=== PATIENT | male | born 1965 | race Caucasian/White ===

== ENCOUNTER 2020-02-15 17:10 | Inpatient (IN) | payer OTHER ==
[~2020-02-15] VITALS: Ht 175.3 cm; Wt 94.3 kg
[2020-02-15 17:15] VITALS: BP 152/84
[2020-02-15] MEDS ORDERED: IBUPROFEN 800800 M1 PO ×2 (17:19→21:07)
[2020-02-15] MEDS ORDERED: CLONIDINE HCL0.2 M2 PO ×2 (17:19→21:06)
[2020-02-15] MEDS ORDERED: LISINOPRIL20 MG PO (17:20)
[2020-02-15] MEDS ORDERED: KEFLEX500 M1 PO ×2 (17:20→21:08)
[2020-02-15 17:37] LABS: ABSOLUTE EOSINOPHILS 0.2 thou/uL (0.0-0.7); ABSOLUTE LYMPHOCYTES 2.8 thou/uL (0.8-5.3); ABSOLUTE MONOCYTES 0.8 thou/uL (0.0-1.2); ABSOLUTE NEUTROPHILS 5.9 thou/uL (1.6-8.1); BASOPHILS 0.3 %; EOSINOPHILS 2.2 %; HEMATOCRIT 50.6 % (42.0-52.0); HEMOGLOBIN 17.6 gm/dL (14.0-18.0); LYMPHOCYTES 28.3 %; MCHC 34.7 g/dL (28.0-37.0); MCV 92.3 fL (80.0-100.0); MONOCYTES 8.7 %; MPV 8.3 fl. (7.2-11.1); NUCLEATED RBCS 0 /100WBC; PLATELET COUNT* 430 thou/uL (150-400); POLYS 60.5 %; RBC 5.48 mil/uL (4.50-6.00); RDW-CV 15.1 % (10.5-14.5); WBC 9.7 thou/uL (4.0-11.0)
[2020-02-15 17:44] LABS: APTT 30.8 Seconds (25.0-31.3); INR 1.1; PROTIME 11.4 Seconds (9.20-11.50)
[2020-02-15 17:45] LABS: CALCIUM 9.7 mg/dL (8.5-10.1); CREATININE 1.3 mg/dL (0.6-1.3); POTASSIUM 4.4 mmol/L (3.5-5.1)
[2020-02-15 17:55] LABS: ALBUMIN 3.6 g/dL (3.4-5.0); MAGNESIUM 2.1 mg/dL (1.8-2.4); TOTAL BILIRUBIN 0.7 mg/dL (<0.1-1.0); TOTAL PROTEIN 8.3 g/dL (6.4-8.2)
[2020-02-15 20:04] VITALS: BP 130/95
[2020-02-15 20:15] VITALS: BP 169/83
[2020-02-15] MEDS ORDERED: ALPRAZOLAM PO (21:05)
[2020-02-15] MEDS ORDERED: PRINIVIL40 MG PO (21:09)
[2020-02-15] MEDS ORDERED: TYLENOL PM EX-1 EACH PO (21:10)
[2020-02-16] VITALS (19 sets, daily range): BP systolic 124–175; BP diastolic 68–104
[2020-02-16 09:44] LABS: CHOLESTEROL 242 mg/dL (<200); HDL CHOLESTEROL 39 mg/dL (>40); LDL CHOLESTEROL 176 mg/dL (<100); SERUM ASSESSMENT Clear; TC:HDL 6.2 Ratio (Not establshd); TRIGLYCERIDE 138 mg/dL (<150); VLDL 28 mg/dL (<40)
--- NOTE | 2020-02-16 12:38 | EKG ---
[place] [address] ELECTROCARDIOGRAM REPORT Name: BIMAL BRAXTON Room: [address] ADM IN M.R.#: [id number] Admission: 02/15/20 Attend Phys: Dago Jacinto Discharge: Date of : 69 Date of Service: 02/15/20 1715 Report #: [id number] THIS REPORT FOR: //name// [facility] ED Test Date: 2020-02-15 Test Time: 17:15:03 Pat Name: BIMAL BRAXTON Department: Room: [facility] Gender: M Stacker: PRANAV : 1965 Requested By: Herbert Will Order Number: [id number] MD: René Kumar Measurements Intervals [place] Rate: 88 P: 55 NM: 151 QRS: -66 QRSD: 87 T: 43 QT: 375 QTc: 454 Interpretive Statements Sinus rhythm Ventricular premature complex Probable left atrial enlargement Inferior infarct, old possible Anterior infarct, old No previous ECG available for comparison Electronically Signed On 02-16-2020 12:38:40 CDT by René Kumar [email or web address] <ELECTRONICALLY SIGNED> By: René Kumar MD, [facility] 02/16/20 1238 1715 1715 René Kumar MD, [facility] /EPI
--- NOTE | 2020-02-16 15:06 | EKG ---
[place] [address] ELECTROCARDIOGRAM REPORT Name: BIMAL BRAXTON Room: [address] ADM IN M.R.#: [id number] Admission: 02/15/20 Attend Phys: Dago Jacinto Discharge: Date of : 69 Date of Service: 02/16/20 1322 Report #: [id number] THIS REPORT FOR: //name// [facility] Test Date: 2020-02-16 Test Time: 13:22:40 Pat Name: BIMAL BRAXTON Department: Room: [address] Gender: M Airport Ramp Attendant: : 1965 Requested By: Yamil Key Order Number: [id number] MD: René Kumar Measurements Intervals [place] Rate: 62 P: 36 RI: 163 QRS: -44 QRSD: 119 T: -58 QT: 500 QTc: 508 Interpretive Statements Sinus rhythm Left anterior fascicular block Probable anterior infarct, age indeterminate Compared to ECG 02/15/2020 17:15:03 Left anterior fascicular block persists Ventricular premature complex(es) no longer present Myocardial infarct finding still present Electronically Signed On 02-16-2020 15:06:42 CDT by René Kumar [email or web address] <ELECTRONICALLY SIGNED> By: René Kumar MD, [facility] 02/16/20 1506 1322 1322 René Kumar MD, [facility] /EPI
--- NOTE | 2020-02-16 17:36 | 2DMMODE ---
[place] [address] 2 D/M-MODE ECHOCARDIOGRAM Name: IRAISBIMAL Jayden Room: [address] IN [facility]#: [id number] Admission: 02/15/20 Attend Phys: Dago Jacinto Discharge: Date of : 69 Date of Service: 02/16/20 1736 Report #: [id number] THIS REPORT FOR: cc: FAM - No family physician/PCP FAM - No family physician/PCP Yamil Key MD [facility] ~ APPROVED REPORT Study performed: 02/16/2020 13:44:11 EXAM: Comprehensive 2D, Doppler, and color-flow Echocardiogram Patient Location: In-Patient Room #: 222 Status: routine BSA: 2.10 HR: 59 bpm BP: 175/89 mmHg Rhythm: NSR Other Information Study Quality: Good Indications Non STEMI Chest Pain 2D Dimensions IVSd: 12.75 (7-11mm) LVOT Diam: 20.37 (18-24mm) LVDd: 44.57 mm PWd: 11.70 (7-11mm) Ascending Ao: 37.29 (22-36mm) LVDs: 27.14 (25-40mm) Aortic Root: 34.94 mm Volumes Left Atrial Volume (Systole) LA ESV Index: 26.10 mL/m2 Aortic Valve AoV Peak Juanito.: 1.36 m/s AO Peak Gr.: 7.36 mmHg LVOT Max P.71 mmHg AO Mean Gr.: 3.48 mmHg LVOT Mean P.32 mmHg LVOT Max V: 1.09 m/s AO V2 VTI: 25.48 cm LVOT Mean V: 0.70 m/s HEIDE (VTI): 2.34 cm2 LVOT V1 VTI: 18.26 [place] [address] 2 D/M-MODE ECHOCARDIOGRAM Name: BIMAL BRAXTON Room: [address] IN [facility].#: [id number] Admission: 02/15/20 Attend Phys: Dago Jacinto Discharge: Date of : 69 Date of Service: 02/16/20 1736 Report #: [id number] Mitral Valve E/A Ratio: 1.02 MV Decel. Time: 258.99 ms MV E Max Juanito.: 0.56 m/s MV PHT: 75.11 ms MVA (PHT): 2.93 cm2 TDI E/Lateral E': 8.00 E/Medial E': 9.33 Medial E' Juanito.: 0.06 m/s Lateral E' Juanito.: 0.07 m/s Pulmonary Valve PV Peak Juanito.: 0.99 m/s PV Peak Gr.: 3.89 mmHg Left Ventricle The left ventricle is normal size. There is normal LV segmental wall motion. Mild concentric left ventricular hypertrophy. Left ventricular systolic function is normal. LVEF is 55-60%. Transmitral Doppler flow pattern suggests impaired LV relaxation. Right Ventricle The right ventricle is normal size. The right ventricular systolic function is normal. Atria The left atrium size is normal. The right atrium size is normal. Aortic Valve The aortic valve is normal in structure. No aortic regurgitation is present. There is no aortic valvular stenosis. Mitral Valve The mitral valve is normal in structure. There is no mitral valve regurgitation noted. No evidence of mitral valve stenosis. Tricuspid Valve The tricuspid valve is normal in structure. Unable to assess PA pressure. Trace tricuspid regurgitation. Pulmonic Valve The pulmonary valve is normal in structure. There is no pulmonic [place] [address] 2 D/M-MODE ECHOCARDIOGRAM Name: BIMAL BRAXTON Room: [address] IN [facility]#: [id number] Admission: 02/15/20 Attend Phys: Dago Jacinto Discharge: Date of : 69 Date of Service: 02/16/20 1736 Report #: [id number] Great Vessels The aortic root is normal in size. IVC is normal in size and collapses >50% with inspiration. Pericardium There is no pericardial effusion. <Conclusion> The left ventricle is normal size. Mild concentric left ventricular hypertrophy. Left ventricular systolic function is normal. LVEF is 55-60%. Transmitral Doppler flow pattern suggests impaired LV relaxation. There is normal LV segmental wall motion. Trace tricuspid regurgitation. IVC is normal in size and collapses >50% with inspiration. <ELECTRONICALLY SIGNED> By: Yamil Key MD, FACC 02/16/20 1736 1736 1736 Yamil Key MD, FACC /INF
[2020-02-17 00:51] VITALS: BP 133/88
[2020-02-17 04:40] VITALS: BP 170/99
[2020-02-17 05:11] LABS: ABSOLUTE BASOPHILS 0.1 thou/uL (0.0-0.2); ABSOLUTE EOSINOPHILS 0.1 thou/uL (0.0-0.7); ABSOLUTE LYMPHOCYTES 2.5 thou/uL (0.8-5.3); ABSOLUTE MONOCYTES 0.7 thou/uL (0.0-1.2); ABSOLUTE NEUTROPHILS 5.1 thou/uL (1.6-8.1); BASOPHILS 1.3 %; EOSINOPHILS 1.7 %; HEMATOCRIT 47.8 % (42.0-52.0); HEMOGLOBIN 16.1 gm/dL (14.0-18.0); MCH 31.3 pg (26.0-34.0); MCHC 33.7 g/dL (28.0-37.0); MCV 92.9 fL (80.0-100.0); MONOCYTES 7.9 %; NUCLEATED RBCS 0 /100WBC; PLATELET COUNT* 445 thou/uL (150-400); POLYS 60.1 %; RBC 5.15 mil/uL (4.50-6.00); RDW-CV 15.1 % (10.5-14.5); WBC 8.6 thou/uL (4.0-11.0)
[2020-02-17 05:43] LABS: CALCIUM 8.6 mg/dL (8.5-10.1); CREATININE 1.4 mg/dL (0.6-1.3); POTASSIUM 3.9 mmol/L (3.5-5.1)
[2020-02-17 08:00] VITALS: BP 166/108
[2020-02-17] MEDS ORDERED: COREG6.25 MG PO (08:47)
[2020-02-17] MEDS ORDERED: EFFIENT10 MG PO (08:47)
[2020-02-17] MEDS ORDERED: ASPIR 8181 MG PO (08:47)
[2020-02-17] MEDS ORDERED: ALPRAZOLAM XR3 MG PO (09:06)
[2020-02-17] MEDS ORDERED: LIVALO2 MG PO (09:09)
--- NOTE | 2020-02-17 09:27 | CARD ---
[address] [address] CARDIAC CATH REPORT Name: IRAISBIMAL Jayden Room: [address] IN [facility]#: [id number] Admission: 02/15/20 Attend Phys: Radha Clay Discharge: Date of : 69 Report #: [id number] THIS REPORT FOR: //name// cc: EMMANUEL - No family physician/PCP FAM - No family physician/PCP ~ APPROVED REPORT Study performed: 02/16/2020 10:04:42 Patient Details Patient Status: In-Patient Room #: The patient is a 54 year-old male Event Personnel Yamil Key Field Control Inspector, Gm Avina RN RN, Marily Whatley, Ya Smith RTR Scrub, René Kumar Assistant Plant Manager Procedures Performed Art Access - R femoral artery, Left Heart Cath w/LV ,LHCLV, BROWN Place w/wo Plasty Single LAD Admission/Lab Medications/Medications given during procedure Hydralazine (Apresoline) IV 10 mg, Angiomax IV 14 ml, Angiomax Drip IV 33 ml per hr, Effient PO 60 mg Procedure Narrative The patient was brought urgently to the Cardiac Catheterization Laboratory and was prepped and draped in a sterile manner. The right femoral was infiltrated with 2% Lidocaine subcutaneous anesthesia. A [place] 6 FR sheath was inserted into the right femoral artery. Coronary angiography was performed using coronary diagnostic catheters. The right coronary system was accessed and visualized with a 6F JR4 catheter. The left coronary system was accessed and visualized with a 6F JL5 catheter. The left ventricle was accessed and visualized with a 6F Pigtail catheter. Left ventricular/Aortic Valve gradient assessed via simultaneous left ventricle and right femoral artery pressure. Left ventriculogram was performed in CLARK projection. Pre-demployment femoral angiogram was performed . Closure device was deployed with a 6 Fr Angioseal STS. The patient tolerated the procedure well and there were no complications associated with the procedure. There was no hematoma. Intra[place] [address] CARDIAC CATH REPORT Name: IRAISBIMAL M Room: [address] IN [facility]#: [id number] Admission: 02/15/20 Attend Phys: Radha Clay Discharge: Date of : 69 Report #: [id number] Sedation start time: 1058 Case end Time: 1142 Fentanyl 50 mcg Versed 2 mg Fluoro Time: 7.3 minutes Dose: DAP 130632 cGycm2 1652.89 mGy Contrast Type and Amount: Visipaque 200 ml Diagnostic Cath Left Main The left main coronary artery is normal and bifurcates into a left anterior descending and circumflex coronary artery. LAD The left anterior descending coronary artery is normal proximally. There is an 80% narrowing in the midportion after the takeoff of a diagonal branch. Diagonal 1 The first diagonal branch is large and normal. Diagonal 2 A moderate sized branch second diagonal branch is normal. Circumflex The circumflex coronary artery is normal in its proximal mid and distal portion. OM1 A large branch first obtuse marginal branch is normal. OM2 A very small second obtuse branch marginal is normal. Right Coronary A large dominant right coronary artery is normal in its proximal mid and distal portion. R PDA A large PDA is normal. RPLV A moderate size posterior lateral branch is normal. Left Ventriculography The left ventricle is normal in size with normal contractility. The left ventricular ejection fraction is estimated to be 60%. Hemodynamics The aortic pressure is 147/100 mmHg with a mean of 115 mmHg. The left ventricular pressure is 141/5 mmHg with a mean of mmHg. The left ventricular end diastolic pressure is 10 mmHg. Pullback from the left ventricle to the aorta revealed no gradient across the aortic valve. PCI Technique Lesion Anticoagulation was achieved with Angiomax. Patient was preloaded with Angiomax IV 14 ml. Percutaneous coronary intervention was performed on the mid left anterior descending artery segment. The lesion stenosis prior to intervention was 80% with SADE 3 flow. A 6FR XB 3.5 100CM Guide Catheter was used to engage the lm ostium. A BMW 190cm Interventional Guidewire was used [place] [address] CARDIAC CATH REPORT Name: BIMAL BRAXTON Room: [address] IN ..#: [id number] Admission: 02/15/20 Attend Phys: Radha Clay Discharge: Date of : 69 Report #: [id number] BALLOON DILATION A Balloon catheter Euphora SC 2.0x10mm was inserted and inflated up to 10.00atm for 9seconds. Additional Inflation: 12.00atm for 12seconds. Additional Inflation: 14.00atm for 5seconds. STENT DEPLOYMENT A drug-eluting stent [place] 2.0 x 15 was inserted and inflated up to 8.00atm for 8seconds. Additional Inflation: 12.00atm for 8seconds. Additional Inflation: 14.00atm for 8seconds. Final angiography reveals 0 % stenosis with SADE 3 flow. Conclusion 1. 80% narrowing in the mid left anterior descending coronary artery. 2. Normal left ventricular end-diastolic pressure. 3. Normal left ventricular systolic function. 4. Successful PCI with deployment of a drug-eluting stent at site of 80% mid LAD stenosis with 0% residual narrowing SADE-3 flow to the distal vessel and no residual thrombus Recommendations Cardiac Risk Reduction Program Aggressive Medical Therapy 1. Percutaneous coronary intervention to the mid left anterior descending coronary artery. 2. Continue aggressive risk factor modification. Medications Administered Aspirin (any) Prasugrel Cardiac Rehabilitation Referral Diagnostic Cath Approved by: Yamil Key MD Date/Time: 02/17/2020 09:26:50 <ELECTRONICALLY SIGNED> By: René Kumar MD, FACC 02/17/20926 6 6René Kumar MD, FACC /INF
--- NOTE | 2020-02-17 09:34 | EKG ---
[place] [address] ELECTROCARDIOGRAM REPORT Name: BIMAL BRAXTON Room: [address] ADM IN M.R.#: [id number] Admission: 02/15/20 Attend Phys: Dago Jacinto Discharge: Date of : 69 Date of Service: 02/17/20 0456 Report #: [id number] THIS REPORT FOR: //name// [facility] Test Date: 2020-02-17 Test Time: 04:56:18 Pat Name: BIMAL BRAXTON Department: Room: [address] Gender: M Video Editor: SUSHANT : 1965 Requested By: Yamil Key Order Number: [id number] Arnav MD: René Kumar Measurements Intervals [place] Rate: 61 P: 23 CT: 163 QRS: -48 QRSD: 107 T: -52 QT: 475 QTc: 479 Interpretive Statements Sinus rhythm Inferior infarct, old possible Probable anterior infarct, age indeterminate Compared to ECG 02/16/2020 13:22:40 Myocardial infarct finding still present Electronically Signed On 02-17-2020 9:34:45 CDT by René Kumar [email or web address] <ELECTRONICALLY SIGNED> By: René Kumar MD, [facility] 02/17/20 0934 0456 0456 René Kumar MD, [facility] /EPI
[2020-02-17 09:59] VITALS: BP 175/89
[2020-02-17 10:09] VITALS: BP 175/89
--- NOTE | 2020-02-21 12:58 | CON ---
[address] [address] CONSULTATION Name: BIMAL BRAXTON Room: [address] IN M.R.#: [id number] Admission: 02/15/20 Attend Phys: Radha Clay Discharge: 02/17/20 Date of : 69 Report #: [id number] THIS REPORT FOR: //name// cc: EMMANUEL Contreras No family physician/PCP EMMANUEL - No family physician/PCP ~ THIS REPORT FOR: //name// CC: Haritha Welch MD [facility] physician/PCP Dago Jacinto DATE OF SERVICE: 02/16/2020 CARDIOLOGY CONSULTATION INDICATION: Myocardial infarction. HISTORY OF PRESENT ILLNESS: The patient has no prior cardiac history. He has been having dyspnea on exertion for the past 3 weeks. Three weeks ago, he had superficial thrombosis of a vein on his lower extremity. He had some swelling associated with that. Apparently, ultrasound of the lower extremities showed no evidence of DVT. Yesterday, the patient began to have pain in the middle of his chest, which he thought was indigestion. He had some typical symptoms such as radiation to the left triceps and teeth. The pain waxed and waned yesterday. A chest x-ray was unremarkable. Interestingly, he reports a CardioScan score of 0 three months ago. CARDIAC RISK FACTORS: Include hypertension, dyslipidemia, chewing tobacco use and family history of coronary artery disease. PAST MEDICAL HISTORY: 1. Hypertension. 2. Dyslipidemia. 3. Chewing tobacco use. FAMILY HISTORY: The patient's father has coronary artery disease. SOCIAL HISTORY: The patient does not smoke. He does not drink alcohol. ALLERGIES: None documented. HOME MEDICATIONS: Lisinopril 40 mg daily. REVIEW OF SYSTEMS: Positive for dyspnea on exertion. Negative for shortness of breath at rest. Negative for orthopnea or paroxysmal nocturnal dyspnea. Positive for chest pain as outlined above. Otherwise, [place] [address] CONSULTATION Name: BIMAL BRAXTON Room: [address]#: [id number] Admission: 02/15/20 Attend Phys: Radha Clay Discharge: 02/17/20 Date of : 69 Report #: [id number] systems is unremarkable. PHYSICAL EXAMINATION: VITAL SIGNS: Stable. Blood pressure 153/81, pulse is 77 and regular. GENERAL: This is a pleasant gentleman in no distress. Mood and affect appropriate. HEENT: Extraocular muscles are intact. Mucous membranes are moist. NECK: Shows no jugular venous distention. There are no carotid bruits. CHEST: Reveals clear lung lizarraga without wheezes or rales. CARDIOVASCULAR: Reveals a regular rhythm without gallop or murmur. ABDOMEN: Reveals normal bowel sounds. The abdomen is soft and nontender. EXTREMITIES: Shows no edema presently. There is a thrombosed superficial vein in the left lower extremity. SKIN: Dry. LABORATORY DATA: Reviewed. Presently, troponin 2.63. Labs are otherwise unremarkable. Chest x-ray shows no acute cardiopulmonary process. IMPRESSION AND RECOMMENDATIONS: 1. Myocardial infarction. Chronicity is not well defined. We will plan for angiography and possible intervention today. 2. Probable cunlu-ke-ihslhvj systolic heart failure. The patient is presently euvolemic. We will initiate medications including beta ximena and angiotensin receptor ximena. Echocardiogram ordered and pending. 3. Hypertension. We will adjust medications for improved control. 4. Dyslipidemia. Fasting lipid profile pending. <ELECTRONICALLY SIGNED> By: Yamil Key MD, FACC 02/21/20 1258 0941 0959Michael Nan Key MD, FACC /nt
== END 2020-02-17 12:25 | disposition home or self-care (01) | DRG 246 ==
LOC: M.ERS 17:10 → M.2W 18:14 → M.TBA-ER 18:14 → M.2W 20:10
PROVIDERS: Emergency Medicine Emergency Medical Services; Internal Medicine; Internal Medicine Cardiovascular Disease; ADMIT Internal Medicine; ATTEND Internal Medicine
PROC: 4A023N7 Measurement of Cardiac Sampling and Pressure, Left Heart, Percutaneous Approach (ICD-10-PCS; principal; 2020-02-16)
PROC: B211YZZ Fluoroscopy of Multiple Coronary Arteries using Other Contrast (ICD-10-PCS; principal; 2020-02-16)
PROC: B215YZZ Fluoroscopy of Left Heart using Other Contrast (ICD-10-PCS; principal; 2020-02-16)
PROC: 027034Z Dilation of Coronary Artery, One Artery with Drug-eluting Intraluminal Device, Percutaneous Approach (ICD-10-PCS; principal; 2020-02-16)
DX: I21.4 Non-ST elevation (NSTEMI) myocardial infarction (principal); I50.43 Acute on chronic combined systolic (congestive) and diastolic (congestive) heart failure; I11.0 Hypertensive heart disease with heart failure; E78.5 Hyperlipidemia, unspecified; F17.210 Nicotine dependence, cigarettes, uncomplicated; Z20.828 Contact with and (suspected) exposure to other viral communicable diseases; Z90.81 Acquired absence of spleen; Z79.899 Other long term (current) drug therapy; Z72.89 Other problems related to lifestyle

== ENCOUNTER 2020-07-19 18:25 | Emergency (ER) | payer OTHER ==
[~2020-07-19] VITALS: Ht 175.3 cm; Wt 98.4 kg
[~2020-07-19 18:25] MED LIST: ALPRAZOLAM PO; ALPRAZOLAM XR3 MG PO; ASPIR 8181 MG PO; CLONIDINE HCL0.2 M2 PO; COREG6.25 MG PO; EFFIENT10 MG PO; IBUPROFEN 800800 M1 PO; KEFLEX500 M1 PO; LISINOPRIL20 MG PO; LIVALO2 MG PO; PRINIVIL40 MG PO; TYLENOL PM EX-1 EACH PO
[2020-07-19 19:37] LABS: ABSOLUTE BASOPHILS 0.1 thou/uL (0.0-0.2); ABSOLUTE EOSINOPHILS 0.5 thou/uL (0.0-0.7); ABSOLUTE LYMPHOCYTES 3.6 thou/uL (0.8-5.3); ABSOLUTE MONOCYTES 0.7 thou/uL (0.0-1.2); ABSOLUTE NEUTROPHILS 6.4 thou/uL (1.6-8.1); BASOPHILS 1.2 %; EOSINOPHILS 4.7 %; HEMATOCRIT 36.4 % (42.0-52.0); HEMOGLOBIN 12.3 gm/dL (14.0-18.0); LYMPHOCYTES 31.4 %; MCH 31.3 pg (26.0-34.0); MCHC 33.7 g/dL (28.0-37.0); MONOCYTES 6.4 %; MPV 7.5 fl. (7.2-11.1); NUCLEATED RBCS 0 /100WBC; PLATELET COUNT* 357 thou/uL (150-400); POLYS 56.3 %; RBC 3.91 mil/uL (4.50-6.00); WBC 11.4 thou/uL (4.0-11.0)
[2020-07-19 19:48] LABS: CALCIUM 8.6 mg/dL (8.5-10.1); CREATININE 1.3 mg/dL (0.6-1.3); POTASSIUM 3.7 mmol/L (3.5-5.1)
[2020-07-19 19:52] LABS: ALBUMIN 3.1 g/dL (3.4-5.0); TOTAL BILIRUBIN 0.3 mg/dL (<0.1-1.0); TOTAL PROTEIN 7.1 g/dL (6.4-8.2)
[2020-07-19 21:57] VITALS: BP 165/89
--- NOTE | 2020-07-20 08:55 | EKG ---
[place] [address] ELECTROCARDIOGRAM REPORT Name: BIMAL BRAXTON Room: [facility]#: [id number] Admission: 07/19/20 Attend Phys: Discharge: 07/19/20 Date of : 69 Date of Service: 07/19/201916 Report #: [id number] THIS REPORT FOR: //name// [facility] ED Test Date: 2020-07-19 Test Time: 19:17:03 Pat Name: BIMAL BRAXTON Department: Room: Gender: Photographer Still: [place] : 1965 Requested By: Federica Louis Order Number: [id number] MD: Elijah Walker Measurements Intervals [place] Rate: 68 P: 20 PA: 150 QRS: -28 QRSD: 82 T: 4 QT: 403 QTc: 429 Interpretive Statements Sinus rhythm Borderline left axis deviation Low voltage, precordial leads Probable anteroseptal infarct, old Compared to ECG 02/17/2020 04:56:18 Low QRS voltage now present Myocardial infarct finding still present Electronically Signed On 07-20-2020 8:55:28 SALES ANALYTICS MANAGER by Elijah Walker [email or web address] <ELECTRONICALLY SIGNED> By: Elijah Walker MD, [facility] 07/20/20 0855 16 16 Elijah Walker MD, FAC /EPI
== END 2020-07-19 21:58 | disposition home or self-care (01) ==
LOC: M.ERS 18:25
PROVIDERS: Physician Assistant
DX: I10 Essential (primary) hypertension (principal); Z79.899 Other long term (current) drug therapy; Z79.82 Long term (current) use of aspirin; Z90.89 Acquired absence of other organs

== ENCOUNTER → 2020-07-27 | Outpatient (CLI) | payer OTHER ==
[2020-07-27 15:02] LABS: CALCIUM 9.3 mg/dL (8.5-10.1); CREATININE 1.3 mg/dL (0.6-1.3); POTASSIUM 4.5 mmol/L (3.5-5.1)
== END ==
LOC: M.LAB 14:14
PROVIDERS: ATTEND Internal Medicine Cardiovascular Disease
DX: I25.10 Atherosclerotic heart disease of native coronary artery without angina pectoris (principal); I10 Essential (primary) hypertension